=== PATIENT | male | born 1985 | race Hispanic/Latino ===

== ENCOUNTER 2022-02-15 01:28 | Emergency (ER) | payer OTHER | END 2022-02-15 02:45 | disposition home or self-care (01) | LOC: ERS 01:28 | DX: K08.89 Other specified disorders of teeth and supporting structures (principal); L50.8 Other urticaria | CPT/HCPCS: 93005 ==

== ENCOUNTER 2024-04-20 14:54 | Emergency (ER) | payer OTHER, SELFPAY ==
[2024-04-20] MEDS ORDERED: Ondansetron PF 4 MG/2 ML Vial ONE (16:26)
[2024-04-20] MEDS ORDERED: Dexamethasone 10 MG/ML VIAL ONE (16:26)
[2024-04-20] MEDS ORDERED: EPINEPHrine 1 MG/ML VIAL ONE (16:28)
[2024-04-20 16:56] LABS: #Basophils Less than 0.03 10x3/uL (0.0-0.2); #Eosinophils Less than 0.03 10x3/uL (0.0-0.7); %Basophils 0.3 % (0.0-1.0); %Monocytes 13.2 % (0.0-10.0); Hematocrit 45.5 % (42.0-52.0); Hemoglobin 15.8 g/dL (14.0-18.0); Mean Corpuscular HGB CONC 34.7 g/dL (32.0-36.0); Mean Corpuscular Hemoglobin 30.2 pg (27.0-31.0); Mean Corpuscular Volume 86.8 fL (78.0-98.0); Mean Platelet Volume 9.4 fL (7.4-10.4); Platelet Count 209 10x3/uL (130-400); RBC Distribution Width 13.8 % (11.5-14.5); Red Blood Cell (RBC) Count 5.24 mill/uL (4.70-6.10)
[2024-04-20 17:29] LABS: ALT (SGPT) 9 U/L (8-55); AST (SGOT) 15 U/L (5-34); Alkaline Phosphatase 58 U/L (40-110); Anion Gap 15 mmol/L (10-20); BUN (Urea Nitrogen) 7 mg/dL (8.9-20.6); Calc. Creatinine Clearance 0 mL/min (70-130); Calcium 8.9 mg/dL (7.8-10.44); Carbon Dioxide 23 mmol/L (22-29); Chloride 104 mmol/L (98-107); Estimated GFR 113; Globulin 3.3 g/dL (2.4-3.5); Glucose 95 mg/dL (70-105); Potassium 3.6 mmol/L (3.5-5.1); Protein, Total 7.3 g/dL (6.0-8.3); Sodium 138 mmol/L (136-145)
[2024-04-20] MEDS ORDERED: Acetaminophen 500 MG TAB ONE (18:00)
== END 2024-04-20 17:59 | disposition home or self-care (01) ==
LOC: ERS 14:54
DX: K57.92 Diverticulitis of intestine, part unspecified, without perforation or abscess without bleeding (principal); J06.9 Acute upper respiratory infection, unspecified
CPT/HCPCS: 71045; 80053; 85025; 87428; 96374; 96375; J0171; J1100; J2405